=== PATIENT | female | born 1945 | race Caucasian/White ===

== ENCOUNTER 2019-04-26 07:52 | Day surgery (SDC) | payer MEDICARE, OTHER ==
[~2019-04-26] VITALS: Ht 160 cm; Wt 88.0 kg
[~2019-04-26 07:52] MED LIST: ALBU90OI6 INH; ALLO300 PO; ASPI325; ASPI325 PO; BUDE.25; BUDE200IP IH; CENTRUM ADULTS1 EACH; DHEA PO; DILT180; DILT360ER PO; ESTR2; ESTRTP PV; FOLI1; FOLI1 PO; HYDACE5 PO; Hair, Skin & N1 EACH; LEVSOD75; MAGOXI400; METF500 PO; MONT10T PO; MONT4 PO; MONT5TCH; NATTOKINASE PO; NIAC500 PO; OLME20 PO; OMEP10ER PO; OMEPRAZOLE MAGN20 MG; Pulmicort Fle180 MCG; QUIN325; SPIHYD; SPIRIVA; SUCR1 PO; TAZTIA XT; THYROID ARMOUR PO; TIOT18 IH; TOCO400 PO; VITAMIN D PO; VITB100 PO
[2019-04-26] MEDS ORDERED: Vitamin B Comple1 EA PO (08:13)
[2019-04-26] MEDS ORDERED: Aspir 8181 MG PO (08:13)
== END 2019-04-26 09:46 | disposition home or self-care (01) ==
LOC: ORSCSDS 07:52
PROVIDERS: Surgery
PROC: 0DBL8ZX Excision of Transverse Colon, Via Natural or Artificial Opening Endoscopic, Diagnostic (ICD-10-PCS; principal; 2019-04-26 08:45)
DX: Z12.11 Encounter for screening for malignant neoplasm of colon (principal); D12.3 Benign neoplasm of transverse colon; Z86.010 Personal history of colon polyps; I10 Essential (primary) hypertension; E78.5 Hyperlipidemia, unspecified; J45.909 Unspecified asthma, uncomplicated; E03.9 Hypothyroidism, unspecified; E11.9 Type 2 diabetes mellitus without complications; Z86.711 Personal history of pulmonary embolism
CPT/HCPCS: 82947; 88305; J0461; J2405; J2704; J7120

== ENCOUNTER → 2019-06-17 | Outpatient (CLI) | payer MEDICARE, OTHER ==
[~2019-06-17] MED LIST changes: +Aspir 8181 MG PO; +Vitamin B Comple1 EA PO
== END | disposition home or self-care (01) ==
LOC: LAB 12:15 → LAB SHORT 12:15
DX: R30.0 Dysuria (principal)
CPT/HCPCS: 87086

== ENCOUNTER → 2019-08-30 | Outpatient (CLI) | payer MEDICARE, OTHER | END | disposition home or self-care (01) | LOC: LAB SHORT 19:05 → LAB 19:05 | DX: R30.0 Dysuria (principal) | CPT/HCPCS: 87077; 87086; 87147; 87186 ==

== ENCOUNTER → 2020-08-16 | Outpatient (CLI) | payer MEDICARE, OTHER ==
[2020-08-16 12:43] LABS: Source, Urine Clean Catch
[2020-08-16 13:17] LABS: Appearance, Urine Hazy (Clear); Bilirubin, Urine Neg (Neg); Blood, Urine 1+ (Neg); Color, Urine Yellow (P-Yellow); Glucose Qualitative, Urine Neg (Neg); Ketones, Urine Neg (Neg); Leukocyte Esterase, Urine 3+ (Neg); Nitrite, Urine Neg (Neg); Protein, Urine 2+ (Neg); Urobilinogen, Urine NORM (Normal)
[2020-08-16 13:30] LABS: BASOPHILS ABSOLUTE AUTO 0.05 K/mm3 (0.00-0.23); BASOPHILS PERCENT AUTO 1 % (0-2); EOSINOPHILS ABSOLUTE AUTO 0.19 K/mm3 (0.00-0.68); EOSINOPHILS PERCENT AUTO 2 % (0-6); Hemoglobin 12.2 g/dL (11.5-16.0); IMMATURE GRAN ABSOLUTE AUTO 0.07 K/mm3 (0.00-0.10); IMMATURE GRAN PERCENT AUTO 1 % (0-1); LYMPHOCYTES ABSOLUTE AUTO 1.39 K/mm3 (0.84-5.20); LYMPHOCYTES PERCENT AUTO 14 % (21-46); MONOCYTES ABSOLUTE AUTO 0.63 K/mm3 (0.16-1.47); MONOCYTES PERCENT AUTO 6 % (4-13); Mean Corpuscular HGB 27.1 pg (26.0-34.0); Mean Corpuscular HGB Conc 30.5 g/dL (31.5-36.5); Mean Corpuscular Volume 89 fL (80-100); NEUTROPHILS PERCENT AUTO 77 % (41-73); Platelet Count 307 K/mm3 (150-400); RDW Coefficient Variation 14.2 % (11.7-14.2); RDW Standard Deviation 45.9 fL (35.1-46.3); Red Blood Cell Count 4.51 M/mm3 (3.80-5.20); White Blood Cell Count 10.33 K/mm3 (4.00-11.30)
[2020-08-16 13:35] LABS: Protein, Urine Random 38.9 mg/dL (0.0-11.9); Protein/Creat Ratio, Ur Random 0.3
[2020-08-16 13:43] LABS: Bacteria Few /hpf; Red Blood Cells, Urine 0-2 /hpf (0-2); Renal Epithelial Few /hpf (0-Rare); Squamous Epithelial Cells Mod /hpf (Few); Transitional Epithelial Cells Few /hpf (0-Rare); White Blood Cells, Urine TNTC /hpf (0-5)
[2020-08-16 13:49] LABS: Albumin, Blood 3.5 g/dL (3.4-5.0); Anion Gap 5 mmol/L (6-16); Blood Urea Nitrogen 31 mg/dL (8-24); Bun/Creatinine Ratio 27.4 (12.0-20.0); CO2, Blood 27 mmol/L (21-32); Chloride, Blood 108 mmol/L (98-108); Creatinine, Blood 1.13 mg/dL (0.40-1.00); Glomerular Filtration Rate 50 (60-); Glucose, Blood 158 mg/dL (70-99); Phosphorus, Blood 3.4 mg/dL (2.5-4.9); Potassium, Blood 4.5 mmol/L (3.5-5.5); Sodium, Blood 140 mmol/L (136-145)
== END ==
LOC: LAB SHORT 12:37 → LAB 12:37
PROVIDERS: Internal Medicine
DX: N18.31 Chronic kidney disease, stage 3a (principal)
CPT/HCPCS: 36415; 80069; 81001; 82570; 83970; 84156; 85025

== ENCOUNTER 2020-10-17 17:48 | Emergency (ER) | payer MEDICARE, OTHER ==
[~2020-10-17] VITALS: Ht 160 cm; Wt 83.9 kg
[2020-10-17 18:37] LABS: BASOPHILS ABSOLUTE AUTO 0.03 K/mm3 (0.00-0.23); BASOPHILS PERCENT AUTO 0 % (0-2); EOSINOPHILS ABSOLUTE AUTO 0.26 K/mm3 (0.00-0.68); EOSINOPHILS PERCENT AUTO 2 % (0-6); Hematocrit 39.9 % (33.0-51.0); Hemoglobin 12.6 g/dL (11.5-16.0); IMMATURE GRAN ABSOLUTE AUTO 0.05 K/mm3 (0.00-0.10); IMMATURE GRAN PERCENT AUTO 0 % (0-1); LYMPHOCYTES ABSOLUTE AUTO 2.29 K/mm3 (0.84-5.20); LYMPHOCYTES PERCENT AUTO 19 % (21-46); MONOCYTES ABSOLUTE AUTO 0.86 K/mm3 (0.16-1.47); MONOCYTES PERCENT AUTO 7 % (4-13); Mean Corpuscular HGB 26.7 pg (26.0-34.0); Mean Corpuscular HGB Conc 31.6 g/dL (31.5-36.5); Mean Corpuscular Volume 85 fL (80-100); Mean Platelet Volume 10.6 fL (9.1-12.4); NEUTROPHILS ABSOLUTE AUTO 8.55 K/mm3 (1.96-9.15); NEUTROPHILS PERCENT AUTO 71 % (41-73); Platelet Count 300 K/mm3 (150-400); RDW Standard Deviation 46.5 fL (35.1-46.3); Red Blood Cell Count 4.72 M/mm3 (3.80-5.20); White Blood Cell Count 12.04 K/mm3 (4.00-11.30)
[2020-10-17 18:56] LABS: Alanine Aminotransfer (ALT/SGP 30 U/L (12-78); Albumin, Blood 3.9 g/dL (3.4-5.0); Albumin/Globulin Ratio 0.9 (0.8-1.8); Alk Phos 123 U/L (50-136); Anion Gap 7 mmol/L (6-16); Aspartate Aminotrans (AST/SGOT 19 U/L (12-37); Bilirubin, Total 0.3 mg/dL (0.1-1.0); Blood Urea Nitrogen 18 mg/dL (8-24); Bun/Creatinine Ratio 15.7 (12.0-20.0); CO2, Blood 25 mmol/L (21-32); Calcium, Blood 9.4 mg/dL (8.5-10.1); Chloride, Blood 105 mmol/L (98-108); Creatinine, Blood 1.15 mg/dL (0.40-1.00); Globulin, Blood 4.2 g/dL (2.2-4.0); Glomerular Filtration Rate 49 (60-); Glucose, Blood 120 mg/dL (70-99); Potassium, Blood 4.8 mmol/L (3.5-5.5); Sodium, Blood 137 mmol/L (136-145); Total Protein, Blood 8.1 g/dL (6.4-8.2); Troponin I <0.015 ng/mL (0.000-0.040)
== END 2020-10-17 21:34 | disposition home or self-care (01) ==
LOC: ER 17:48
PROVIDERS: Emergency Medicine
DX: R10.13 Epigastric pain (principal); K21.9 Gastro-esophageal reflux disease without esophagitis; E78.5 Hyperlipidemia, unspecified; E11.9 Type 2 diabetes mellitus without complications; I10 Essential (primary) hypertension; J45.909 Unspecified asthma, uncomplicated; Z79.899 Other long term (current) drug therapy; Z79.82 Long term (current) use of aspirin; Z88.0 Allergy status to penicillin; Z88.8 Allergy status to other drugs, medicaments and biological substances; Z91.010 Allergy to peanuts
CPT/HCPCS: 36415; 71046; 76705; 80053; 83690; 84484; 85025; 93005; 93010; 99284-25; J7030

== ENCOUNTER 2021-10-10 08:15 | Observation (INO) | payer MEDICARE ==
[~2021-10-10] VITALS: Ht 160 cm; Wt 81.7 kg
[~2021-10-10 08:15] MED LIST changes: -CENTRUM ADULTS1 EACH; +CENTRUM SILVER1 EAC2 PO; -DILT180; +DILT180 PO; -LEVSOD75; +LEVSOD75 PO; -MAGOXI400; +MAGOXI400 PO; -MONT5TCH; +OLMESARTAN MEDO40 MG PO; -OMEPRAZOLE MAGN20 MG; +OMEPRAZOLE MAGN20 MG PO; -Pulmicort Fle180 MCG; +Pulmicort Fle180 MCG INH; -SPIRIVA; +SPIRIVA RESPIMAT4 G2 INH
[2021-10-10 09:31] LABS: BASOPHILS ABSOLUTE AUTO 0.04 K/mm3 (0.00-0.23); BASOPHILS PERCENT AUTO 1 % (0-2); EOSINOPHILS ABSOLUTE AUTO 0.17 K/mm3 (0.00-0.68); EOSINOPHILS PERCENT AUTO 2 % (0-6); Hematocrit 43.7 % (33.0-51.0); IMMATURE GRAN ABSOLUTE AUTO 0.04 K/mm3 (0.00-0.10); IMMATURE GRAN PERCENT AUTO 1 % (0-1); LYMPHOCYTES ABSOLUTE AUTO 1.63 K/mm3 (0.84-5.20); LYMPHOCYTES PERCENT AUTO 19 % (21-46); MONOCYTES ABSOLUTE AUTO 0.86 K/mm3 (0.16-1.47); MONOCYTES PERCENT AUTO 10 % (4-13); Mean Corpuscular HGB 28.8 pg (26.0-34.0); Mean Corpuscular Volume 90 fL (80-100); Mean Platelet Volume 10.6 fL (9.1-12.4); NEUTROPHILS ABSOLUTE AUTO 5.71 K/mm3 (1.96-9.15); NEUTROPHILS PERCENT AUTO 68 % (41-73); Platelet Count 235 K/mm3 (150-400); RDW Coefficient Variation 13.7 % (11.7-14.2); RDW Standard Deviation 45.3 fL (35.1-46.3); Red Blood Cell Count 4.86 M/mm3 (3.80-5.20); White Blood Cell Count 8.45 K/mm3 (4.00-11.30)
[2021-10-10 09:45] LABS: Albumin, Blood 3.7 g/dL (3.4-5.0); Bilirubin, Total 0.5 mg/dL (0.1-1.0); Bun/Creatinine Ratio 24.4 (12.0-20.0); Calcium, Blood 9.4 mg/dL (8.5-10.1); Creatinine, Blood 1.23 mg/dL (0.40-1.00); Globulin, Blood 3.7 g/dL (2.2-4.0); Potassium, Blood 4.7 mmol/L (3.5-5.5); Total Protein, Blood 7.4 g/dL (6.4-8.2)
[2021-10-10] MEDS ORDERED: EYEDROPS (10:04)
[2021-10-10 11:41] LABS: Source, Urine Clean Catch
[2021-10-10 11:43] LABS: Appearance, Urine Clear (Clear); Bilirubin, Urine Neg (Neg); Blood, Urine Neg (Neg); Color, Urine Yellow (P-Yellow); Glucose Qualitative, Urine Neg (Neg); Ketones, Urine Neg (Neg); Leukocyte Esterase, Urine Neg (Neg); Nitrite, Urine Neg (Neg); Protein, Urine Neg (Neg); Specific Gravity, Urine 1.015 (1.003-1.022); Urobilinogen, Urine NORM (Normal)
[2021-10-10 12:24] LABS: CHOL/HDL RATIO 5.3; Cholesterol 212 mg/dL (50-200); HDL Cholesterol 40 mg/dL (>39); LDL/HDL RATIO 3.1; Low Density Lipoprotein Chol 125 mg/dL (0-110); Triglycerides 237 mg/dL (30-160); Very Low Density Lipoprot Chol 47 mg/dL (6-32)
[2021-10-10] MEDS ORDERED: DILTIAZEM 24HR240 M3 PO (14:26)
[2021-10-10] MEDS ORDERED: EUTHYROX88 MCG PO (14:29)
--- NOTE | 2021-10-10 14:55 | NUR ---
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 smile is symetrical, oriented to room layout and call system, call light in reach.
--- NOTE | 2021-10-10 17:43 | NUR ---
Pt doing ok, worked with PT today, he recommended a walker to ambulate, no complaints or acute changes. call light in reach.
[2021-10-10] MEDS ORDERED: IPRAT-ALBUT 0.5-3 ML NEB (18:17)
[2021-10-10] MEDS ORDERED: Ventolin/Prove6.7 GM INH (18:18)
--- NOTE | 2021-10-11 04:50 | NUR ---
SHIFT SUMMARY PT IS A 75 Y/O FEMALE, ADMITTED FOR CVA WIH R-SIDED WEAKNESS. SHE IS A&O X 4, 1PA TO THE BATHROOM. PT REPORTED AN EPISODE OF "SEEING SPOTS" DURING THE NIGHT AND A ROMERO, MEDICATED FOR TWICE WITH PRN TYLENOL. NO C/O NAUSEA OR SOB. R-SIDE WEAKNESS NOTED, IMPROVED THIS AM. NO FACIAL DROOP OR SPEECH ISSUES NOTED. NO SWALLOWING IMPEDIMENT. VITAL SIGNS STABLE. TELE SHOWED NSR @ 68. AT HS, PT WAS VERY CONCERNED THAT SHE HAD NOT RECEIVED ANY BLOOD THINNERS, AND THAT IT WAS NOT ORDERED UNTIL THE NEXT MORNING. THE HOSPITALIST WAS INFORMED OF PT CONCERNS, WITH NO CHANGES IN ORDERS MADE DURING THE NIGHT. NO OTHER ACUTE CHANGES IN PT CONDITION NOTED. WILL CONTINUE TO MONITOR AND TREAT PER EMAR UNTIL HAND OFF TO DAY SHIFT RN.
[2021-10-11] MEDS ORDERED: CLOP75 PO (17:51)
== END 2021-10-11 18:41 | disposition home or self-care (01) ==
LOC: ER 08:15 → MEDS 08:17 → ENPENDDIS 10-11 15:20 → MEDS 10-11 18:41
PROVIDERS: Emergency Medicine; ADMIT Family Medicine
DX: I63.81 Other cerebral infarction due to occlusion or stenosis of small artery (principal); G81.91 Hemiplegia, unspecified affecting right dominant side; R29.705 NIHSS score 5; I12.9 Hypertensive chronic kidney disease with stage 1 through stage 4 chronic kidney disease, or unspecified chronic kidney disease; E11.22 Type 2 diabetes mellitus with diabetic chronic kidney disease; N18.30 Chronic kidney disease, stage 3 unspecified; K21.9 Gastro-esophageal reflux disease without esophagitis; E78.5 Hyperlipidemia, unspecified; J45.909 Unspecified asthma, uncomplicated; M10.9 Gout, unspecified; E03.9 Hypothyroidism, unspecified; Z86.711 Personal history of pulmonary embolism; Z85.038 Personal history of other malignant neoplasm of large intestine; Z91.018 Allergy to other foods; Z91.010 Allergy to peanuts; Z88.0 Allergy status to penicillin; Z88.8 Allergy status to other drugs, medicaments and biological substances
CPT/HCPCS: 36415; 70496; 70498; 70551; 80053; 80061; 81003; 85025; 93005; 93010; 93246; 93306; 97112; 97162; 97165; 99285-25; A9270; J1650; J7030; Q9967

== ENCOUNTER 2023-09-14 16:03 | Emergency (ER) | payer OTHER, MEDICARE ==
[~2023-09-14] VITALS: Ht 160 cm; Wt 74.8 kg
[~2023-09-14 16:03] MED LIST changes: +CLOP75 PO; +DILTIAZEM 24HR240 M3 PO; +EUTHYROX88 MCG PO; +EYEDROPS; +IPRAT-ALBUT 0.5-3 ML NEB; +Ventolin/Prove6.7 GM INH
[2023-09-14] MEDS ORDERED: OxyCODONE HCL 5 MG TAB PO ONE (17:50)
[2023-09-14] MEDS ORDERED: Ondansetron 4 MG SoluTab SL ONE (17:50)
[2023-09-14] MEDS ORDERED: RX Prepack 6 Tabs Oxycodone 5mg UD ONE (18:25)
[2023-09-14] MEDS ORDERED: RX Prepack 2 Tabs Ondansetron ODT 4MG UD ONE (18:25)
[2023-09-14] MEDS ORDERED: ONDA4 PO (18:30)
[2023-09-14] MEDS ORDERED: PERCOCET 10-321 EA10 PO (18:30)
[2023-09-14] MEDS ORDERED: NS 1,000 ML IV ONE (18:34)
[2023-09-14] MEDS ORDERED: NS 1,000 ML IV SCH ×2 (18:45→19:20)
[2023-09-14 20:00] VITALS: BP 126/60
== END 2023-09-14 20:49 | disposition home or self-care (01) ==
LOC: ER 16:03
DX: S42.211A Unspecified displaced fracture of surgical neck of right humerus, initial encounter for closed fracture (principal); M10.9 Gout, unspecified; K21.9 Gastro-esophageal reflux disease without esophagitis; E78.5 Hyperlipidemia, unspecified; E11.9 Type 2 diabetes mellitus without complications; J45.909 Unspecified asthma, uncomplicated; W01.198A Fall on same level from slipping, tripping and stumbling with subsequent striking against other object, initial encounter; Z88.0 Allergy status to penicillin; Z88.8 Allergy status to other drugs, medicaments and biological substances; Z91.018 Allergy to other foods; Z91.010 Allergy to peanuts; Z79.899 Other long term (current) drug therapy; Z79.890 Hormone replacement therapy; Z79.51 Long term (current) use of inhaled steroids; Z79.82 Long term (current) use of aspirin; Z79.02 Long term (current) use of antithrombotics/antiplatelets
CPT/HCPCS: 29105; 73060; 73090; 93005; 93010; 96360-59; 99283-25; A9270; J7030

== ENCOUNTER → 2025-05-09 | Outpatient (CLI) | payer MEDICARE, OTHER ==
[~2025-05-09] MED LIST changes: +ONDA4 PO; +PERCOCET 10-321 EA10 PO
[2025-05-09 11:35] LABS: Source, Urine Clean Catch
[2025-05-09 14:32] LABS: Bilirubin, Urine Neg (Neg); Color, Urine Yellow (P-Yellow); Glucose Qualitative, Urine Neg (Neg); Ketones, Urine Neg (Neg); Leukocyte Esterase, Urine 3+ (Neg); Protein, Urine 2+ (Neg); Specific Gravity, Urine 1.015 (1.003-1.022); Urobilinogen, Urine NORM (Normal)
[2025-05-09 15:32] LABS: Red Blood Cells, Urine 0-2 /hpf (0-2); White Blood Cells, Urine TNTC /hpf (0-5)
== END ==
LOC: LAB 11:34 → LAB SHORT 11:34 → EDSTATUS 16:52
PROVIDERS: Internal Medicine
DX: R30.0 Dysuria (principal)
CPT/HCPCS: 81001